=== PATIENT | female | born 2000 | race Caucasian/White ===

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

== ENCOUNTER 2023-05-02 21:08 | Emergency (ER) | payer OTHER | END 2023-05-02 22:06 | disposition home or self-care (01) | LOC: MADERS 21:08 | DX: L25.9 Unspecified contact dermatitis, unspecified cause (principal) | CPT/HCPCS: 99282 ==